=== PATIENT | female | born 1945 | race Caucasian/White ===

== ENCOUNTER 2016-12-10 07:24 | Emergency (ER) | payer MEDICARE ==
[~2016-12-10] VITALS: Ht 162.6 cm; Wt 70.5 kg
[~2016-12-10 07:24] MED LIST: TAB-TAB
[2016-12-10 07:27] VITALS: BP 123/74; PULSE 78; RESP 16; TEMP 98.1; O2SAT 96
[2016-12-10] MEDS ORDERED: AZIT250T3 PO (07:42)
[2016-12-10] MEDS ORDERED: BENZ100 PO (07:42)
--- NOTE | 2016-12-10 07:42 | PD ---
HPI Chief Complaint: Cold / Flu Symptoms Time Seen by Provider: 07:34 Travel History International Travel<30 days: No Contact w/Intl Traveler<30days: No Traveled to known affect area: No History of Present Illness HPI This is a 71 year old female who presents to the emergency department with a productive cough with yellow sputum, intermittent that has been present for one week, moderate severity, associated with some rhinorrhea. 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 She denies any fevers or chills. She's not had any shortness of breath. She still been able to sleep at night. She stayed home from work today to try to get better. She has no history of smoking and is otherwise healthy and is on no medications. [facility]LY [facility], [facility] Past Medical History Medical History: Denies Significant Hx Diminished Hearing: No Tetanus Vaccination: > 5 Years Influenza Vaccination: No Past Surgical History Appendectomy: Yes Cholecystectomy: Yes Hysterectomy: Yes Tonsillectomy: Yes Social History Alcohol Use: No Tobacco Use: No ( A TEEN) Allergies-Medications (Allergen,Severity, Reaction): Coded Allergies: No Known Allergies (Verified , 12/10/16) Reported Meds & Prescriptions Reported Meds & Active Scripts Active No Active Prescriptions or Reported Medications Review of Systems Except as stated in HPI: all other systems reviewed are Neg Physical Exam Narrative GENERAL:Well appearing, no acute distress SKIN: Warm and dry. HEAD: Atraumatic. Normocephalic. EYES: Pupils equal and round. No injection or drainage. ENT: Moist mucous membranes NECK: Trachea midline. CARDIOVASCULAR: Regular rate and rhythm. No murmur appreciated. RESPIRATORY: Clear to auscultation. Breath sounds equal bilaterally. GASTROINTESTINAL: Abdomen soft, non-tender, nondistended. MUSCULOSKELETAL: No obvious deformities. NEUROLOGICAL: Awake and alert. No obvious cranial nerve deficits. Moving all extremities. PSYCHIATRIC: Appropriate mood and affect; insight and judgment normal. Data Data Last Documented VS Vital Signs Date Time Temp Pulse Resp B/P Pulse Ox O2 Delivery O2 Flow Rate FiO2 12/10/16 07:34 Room Air 12/10/16 07:27 98.1 78 16 123/74 96 MDM Medical Decision Making Medical Screen Exam Complete: Yes Emergency Medical Condition: Yes Differential Diagnosis Viral upper respiratory infection, bronchitis, pneumonia Narrative Course This is a 71-year-old female who presents to the emergency department with a cough productive of yellow sputum. She is otherwise quite well-appearing with normal vital signs. Patient will be discharged on azithromycin given the duration of her symptoms, and Tessalon Perles for symptomatic control. Diagnosis Primary Impression: Bronchitis Patient Instructions: General Instructions Additional Instructions: If you develop severe chest pain, shortness of breath, sweating, lightheadedness , dizziness or difficulty breathing return to the emergency department immediately. Followup with your primary care physician in 2-3 days if your symptoms are not resolved. Med/Other Pt SpecificInfo: Prescription(s) given Scripts Benzonatate (Tessalon Perles)100 Mg [id number] Mg PO TID PRN (COUGH) #20 CAP Ref 0 Prov:Sima Couch MD 12/10/16 Azithromycin 250 Mg [id number] Mg PO DIRECTED #6 TAB Take 2 tabs (500 mg) on day 1 then 1 tab daily x 4 days. Prov:Sima Couch MD 12/10/16 Disposition: 01 DISCHARGE HOME Condition: Stable Sima Couch MD Dec 10, 2016 07:42
== END 2016-12-10 07:55 | disposition home or self-care (01) ==
LOC: PHED 07:24
DX: R05 Cough (principal); J40 Bronchitis, not specified as acute or chronic
CPT/HCPCS: 99283

== ENCOUNTER 2016-12-29 05:49 | Emergency (ER) | payer MEDICARE ==
[~2016-12-29] VITALS: Ht 162.6 cm; Wt 68.5 kg
[~2016-12-29 05:49] MED LIST changes: +AZIT250T3 PO; +BENZ100 PO; -TAB-TAB
[2016-12-29 05:55] VITALS: BP 142/77; PULSE 74; RESP 18; TEMP 97.8; O2SAT 96
[2016-12-29] MEDS ORDERED: MEDR4PAK PO (06:22)
--- NOTE | 2016-12-29 06:27 | PD ---
HPI Chief Complaint: Cold / Flu Symptoms Time Seen by Provider: 06:21 Travel History International Travel<30 days: No Contact w/Intl Traveler<30days: No Traveled to known affect area: No History of Present Illness HPI 71-year-old female presents to the emergency department for complaint of intermittent hoarseness over the past 3 weeks. Patient was seen approximately 3 weeks ago and diagnosed with bronchitis given prescription for azithromycin and Tessalon Perles. Patient states cough and congestion has essentially resolved except for some scant sputum production which is white in color. No fever chills no chest pain no shortness of breath. Patient denies any sinus pressure drainage or posterior sinus drainage. Patient denies any pain. No nausea no vomiting no abdominal pain. Patient denies any chronic medical conditions such as CAD hypertension dyslipidemia diabetes COPD and denies tobacco use. Patient states that due to the intermittent nature of her hoarseness she finally decided to return to the emergency department for evaluation. Patient does not report any environmental or seasonal allergies. Patient is not been taking any antihistamines. Patient denies any difficulty with swallowing. Patient denies any throat pain. No report of weight loss. [facility] Past Medical History Narrative Medical Negative past medical history; hysterectomy appendectomy cholecystectomy tonsillectomy; no tobacco use; nursing notes reviewed Diminished Hearing: No Past Surgical History Appendectomy: Yes Cholecystectomy: Yes Hysterectomy: Yes Tonsillectomy: Yes Social History Alcohol Use: No Tobacco Use: No ( A TEEN) Allergies-Medications (Allergen,Severity, Reaction): Coded Allergies: No Known Allergies (Verified , 12/10/16) Reported Meds & Prescriptions Reported Meds & Active Scripts Active Medrol Dosepak (Methylprednisolone) 4 Mg Dspk 4 Mg PO DIRECTED Per Pharmacist direction Tessalon Perles (Benzonatate) 100 Mg Cap 100 Mg PO TID PRN Azithromycin 250 Mg Tab 250 Mg PO DIRECTED Take 2 tabs (500 mg) on day 1 then 1 tab daily x 4 days. Review of Systems Except as stated in HPI: all other systems reviewed are Neg General / Constitutional: No: Fever, Chills HENT: Positive: Other (hoarseness), No: Sore Throat, Congestion Cardiovascular: No: Chest Pain or Discomfort Respiratory: Positive: Cough, No: Shortness of Breath, Wheezing, Stridor Gastrointestinal: No: Nausea, Vomiting, Abdominal Pain Genitourinary: No: Flank Pain Musculoskeletal: No: Myalgias, Arthralgias Skin: No Rash Neurologic: No: Weakness Psychiatric: No: Anxiety Endocrine: No: Heat Intolerance Hematologic/Lymphatic: No: Easy Bruising Physical Exam Narrative GENERAL: SKIN: Warm and dry. HEAD: Normocephalic. EYES: No scleral icterus. No injection or drainage. NECK: Supple, trachea midline. No JVD or lymphadenopathy. CARDIOVASCULAR: Regular rate and rhythm without murmurs, gallops, or rubs. RESPIRATORY: Breath sounds equal bilaterally. No accessory muscle use. GASTROINTESTINAL: Abdomen soft, non-tender, nondistended. MUSCULOSKELETAL: No cyanosis, or edema. BACK: Nontender without obvious deformity. No CVA tenderness. Data Data Last Documented VS Vital Signs Date Time Temp Pulse Resp B/P Pulse Ox O2 Delivery O2 Flow Rate FiO2 12/29/16 05:55 97.8 74 18 142/77 96 Room Air Orders Chest, Single Ap (12/29/16 ) [facility] Medical Decision Making Medical Screen Exam Complete: Yes Emergency Medical Condition: Yes Medical Record Reviewed: Yes Interpretation(s) CXR: FINDINGS: A single view of the chest demonstrates the lungs to be symmetrically aerated without evidence of mass, infiltrate or effusion. Small hiatal hernia heart size normal. Calcified granulomata in the left lung and calcified left hilar lymph nodes. Osseous structures are intact. CONCLUSION: Small hiatal hernia. No focal infiltrate or effusion. Mathieu Michael MD on December 29, 2016 at 6:46 Board Certified Radiologist. This report was verified electronically. Differential Diagnosis Viral syndrome, laryngitis, bronchitis, pneumonia, vocal cord polyp, gerd Narrative Course Patient sent for chest x-ray and will be provided prescription for Medrol Dosepak; patient is encouraged to follow-up with firearms instructor Diagnosis Primary Impression: Laryngitis Referrals: Ear / Nose / Throat Specialist call for appointment Primary Care Physician call for appointment Patient Instructions: General Instructions Additional Instructions: Increase fluid hydration Use [id number] Zyrtec per package directions Use OTC Zantac 150 per package directions Complete course of steroid therapy Follow-up with firearms instructor call office to schedule appointment Return to the emergency department for any concerns or change in condition Use symptomatic intervention such as warm salt water gargles, lozenges, and/or Chloraseptic [place] Med/Other Pt SpecificInfo: Prescription(s) given Scripts Methylprednisolone Dosepak (Medrol Dosepak)4 Mg Dspk4 Mg PO DIRECTED #1 DSPK Ref 0 Per Pharmacist direction Prov:Yenni Anna MD 12/29/16 Disposition: 01 DISCHARGE HOME Condition: Stable Yenni Anna MD Dec 29, 2016 06:27
--- NOTE | 2016-12-29 06:48 | RADHPO ---
EXAM DATE/TIME: 12/29/2016 06:36 [place] COMPARISON: No previous studies available for comparison. INDICATIONS : Cough. MEDICAL HISTORY : None. SURGICAL HISTORY : None. ENCOUNTER: Initial ACUITY: 2 days PAIN SCORE: 0/10 LOCATION: Bilateral chest FINDINGS: A single view of the chest demonstrates the lungs to be symmetrically aerated without evidence of mas s, infiltrate or effusion. Small hiatal hernia heart size normal. Calcified granulomata in the left l luís and calcified left hilar lymph nodes. Osseous structures are intact. CONCLUSION: Small hiatal hernia. No focal infiltrate or effusion. Mathieu Michael MD on December 29, 2016 at 6:46 Board Certified Radiologist. This report was verified electronically.
== END 2016-12-29 07:30 | disposition home or self-care (01) ==
LOC: PHED 05:49
DX: J04.0 Acute laryngitis (principal)
CPT/HCPCS: 71010; 99283

== ENCOUNTER 2017-01-11 09:27 | Emergency (ER) | payer MEDICARE ==
[~2017-01-11] VITALS: Ht 162.6 cm; Wt 67.1 kg
[~2017-01-11 09:27] MED LIST changes: +MEDR4PAK PO
[2017-01-11 09:30] VITALS: BP 119/75; PULSE 62; RESP 16; TEMP 98.2; O2SAT 95
== END 2017-01-11 09:55 | disposition left against medical advice (07) ==
LOC: PHED 09:27
DX: J04.0 Acute laryngitis (principal); Z53.21 Procedure and treatment not carried out due to patient leaving prior to being seen by health care provider
CPT/HCPCS: 99281

== ENCOUNTER 2017-01-25 16:49 | Emergency (ER) | payer MEDICARE ==
[~2017-01-25] VITALS: Ht 162.6 cm; Wt 60.0 kg
[2017-01-25 16:50] VITALS: BP 169/85; PULSE 77; RESP 17; TEMP 98.6; O2SAT 98
[2017-01-25] MEDS ORDERED: MULT-135 PO (17:04)
--- NOTE | 2017-01-25 17:29 | PD ---
HPI Chief Complaint: ENT Complaint Time Seen by Provider: 17:04 Travel History International Travel<30 days: No Contact w/Intl Traveler<30days: No Traveled to known affect area: No History of Present Illness HPI Patient is a 71-year-old female comes in complaining of hoarseness. She says this has been going on for at least the past month. She says it comes and goes throughout the day. She says today she opened the window and a lot of pollen came in and she thinks that this may have caused it. She was seen here in December for similar symptoms and was advised to see an ear nose and throat doctor , however she has not gone to see him yet. She denies any shortness of breath, any difficulty swallowing, any fever, any chills. She is not having any pain to her throat. PFSH Past Medical History Diminished Hearing: No Medical other: Yes (LARYNGITIS) Tetanus Vaccination: > 5 Years Influenza Vaccination: No ?: Not Menopausal: Yes Past Surgical History Appendectomy: Yes Cholecystectomy: Yes Hysterectomy: Yes Tonsillectomy: Yes Social History Alcohol Use: No Tobacco Use: No ( A TEEN) Substance Use: No Allergies-Medications (Allergen,Severity, Reaction): Coded Allergies: Aspirin (Verified Adverse Reaction, Severe, Bleeding nose, 01/25/17) Reported Meds & Prescriptions Reported Meds & Active Scripts Active Reported Multi Vitamin (Multiple Vitamin) 1 Tab Tab 1 Tab PO DAILY Review of Systems General / Constitutional: No: Fever, Chills HENT: No: Lightheadedness, Sore Throat, Congestion Cardiovascular: No: Chest Pain or Discomfort Respiratory: No: Shortness of Breath Musculoskeletal: No: Myalgias Skin: No Rash, No Change in Pigmentation Neurologic: No: Weakness Physical Exam Narrative GENERAL: Awake and alert, in no acute distress. Voice is hoarse. SKIN: Focused skin assessment warm/dry. HEAD: Atraumatic. Normocephalic. EYES: Pupils equal and round. No scleral icterus. ENT: No pharyngeal swelling, no tonsillar swelling or exudates, no pharyngeal erythema. Mucous membranes pink and moist. NECK: Trachea midline. No JVD. Minimally enlarged anterior cervical lymph nodes on the right, mobile and nontender. CARDIOVASCULAR: Regular rate and rhythm. No murmur appreciated. RESPIRATORY: No accessory muscle use. Clear to auscultation. Breath sounds equal bilaterally. MUSCULOSKELETAL: No obvious deformities. No clubbing. No cyanosis. No edema. NEUROLOGICAL: Awake and alert. No obvious cranial nerve deficits. Motor grossly within normal limits. Normal speech. Data Data Last Documented VS Vital Signs Date Time Temp Pulse Resp B/P Pulse Ox O2 Delivery O2 Flow Rate FiO2 01/25/17 17:08 18 01/25/17 16:50 98.6 77 169/85 98 MDM Medical Decision Making Medical Screen Exam Complete: Yes Emergency Medical Condition: Yes Medical Record Reviewed: Yes Differential Diagnosis Laryngitis versus URI versus allergies versus vocal cord issue Narrative Course Patient is a 71-year-old female comes in complaining of hoarseness. Exam shows no acute abnormalities other than hoarse voice and she has no other symptoms at this time. Patient advised that she needs to see ENT for they can look at her vocal cords specifically to look for a mass or there is paralysis of the vocal cords. Patient is in no distress, there is no issues with breathing or swallowing. Eyes she can try taking Zyrtec or other [id number] allergy medications if the pollen is bothering her. Advised to call ENT for an appointment on Friday. Advised to return to the ED as needed for any worsening symptoms. Diagnosis Primary Impression: Hoarseness Referrals: Last Hu MD call for appointment Patient Instructions: General Instructions, Laryngitis (ED) Additional Instructions: Follow up with ENT, Dr. Hu [address] [address] [phone]; call for an appointment next week. Take Zyrtec for allergy symptoms. Return to the ED as needed for any worsening symptoms. Disposition: 01 DISCHARGE HOME Condition: Stable Dilma Sauer MD Jan 25, 2017 17:29
[2017-01-25 17:32] VITALS: BP 120/78; TEMP 97.8
== END 2017-01-25 17:32 | disposition home or self-care (01) ==
LOC: NEPD 16:49
DX: R49.0 Dysphonia (principal); Z87.891 Personal history of nicotine dependence
CPT/HCPCS: 99283